=== PATIENT | male | born 1990 | race American Indian/Alaskan Native ===

== ENCOUNTER 2018-12-18 12:26 | Emergency (ER) | payer SELFPAY ==
[2018-12-18 13:58] VITALS: BP 142/98
--- NOTE | 2018-12-18 14:03 | Emergency Department Report ---
Blank Doc - Documentation Documentation: 28 yo male presents cc of non productive cough with chest pain x 1 week also cc of boil to lft groin area Plan meds, cxr reevaluate evaluate groin
--- NOTE | 2018-12-18 14:27 | XRay Report ---
ROUTINE CHEST, TWO VIEWS: HISTORY: Cough with chest pain. The trachea, heart, mediastinal contour, lung vasquez and bony thorax are unremarkable. IMPRESSION: Unremarkable chest x-ray.
--- NOTE | 2018-12-18 15:08 | Emergency Department Report ---
ED General Adult HPI - General Chief complaint: Upper Respiratory Infection Stated complaint: CHEST PAIN/BOIL GROIN AREA Time Seen by Provider: 12/18/18 13:57 Source: patient Mode of arrival: Ambulatory Limitations: No Limitations - History of Present Illness Initial comments: Patient is a 28-year-old [place] male who states for the past 3 days he's had some tenderness in the left lateral groin area. Patient states that this been no drainage but there is some tenderness on palpation and warmth. Patient denies any nausea vomiting fevers or chills. Patient also states she's had a nonproductive cough and states that his chest hurts after he coughs he says some mild shortness of breath. Patient denies any exposures to irritants in the air. Patient states he doesn't feel ill at this time. Severity scale (0 -10): 10 - Related Data Previous Rx's Medication Instructions Recorded Last Taken Type ALBUTEROL Inhaler (OR & NICU) 2 puff IH QID PRN #1 inhalation 12/18/18 Unknown Rx [ProAir HFA Inhaler] Clindamycin [Clindamycin CAP] 300 mg PO Q8H 7 Days cap 12/18/18 Unknown Rx HYDROcodone/APAP 5-325 [[place] 1 each PO Q6HR PRN #15 tablet 12/18/18 Unknown Rx 5/325] Ibuprofen [Motrin] 800 mg PO Q8HR PRN #20 tablet 12/18/18 Unknown Rx Allergies Allergy/AdvReac Type Severity Reaction Status Date / Time No Known Allergies Allergy Unverified 12/18/18 13:58 ED Review of Systems ROS: Stated complaint: CHEST PAIN/BOIL GROIN AREA Other details as noted in HPI Comment: All other systems reviewed and negative ED Past Medical Hx - Social History Smoking Status: Current Every Day Smoker Substance Use Type: None - Medications Home Medications: Home Medications Medication Instructions Recorded Confirmed Last Taken Type ALBUTEROL Inhaler (OR & NICU) 2 puff IH QID PRN #1 inhalation 12/18/18 Unknown Rx [ProAir HFA Inhaler] Clindamycin [Clindamycin CAP] 300 mg PO Q8H 7 Days cap 12/18/18 Unknown Rx HYDROcodone/APAP 5-325 [[place] 1 each PO Q6HR PRN #15 tablet 12/18/18 Unknown Rx 5/325] Ibuprofen [Motrin] 800 mg PO Q8HR PRN #20 tablet 12/18/18 Unknown Rx ED Physical Exam - General Limitations: No Limitations General appearance: alert, in no apparent distress - Head Head exam: Present: atraumatic, normocephalic - Eye Eye exam: Present: normal appearance - ENT ENT exam: Present: mucous membranes moist - Neck Neck exam: Present: normal inspection - Respiratory Respiratory exam: Present: normal lung sounds bilaterally. Absent: respiratory distress, wheezes, rales - Cardiovascular Cardiovascular Exam: Present: regular rate, normal rhythm. Absent: systolic murmur, diastolic murmur, rubs, gallop - GI/Abdominal GI/Abdominal exam: Present: soft, normal bowel sounds. Absent: distended, tenderness, guarding - Rectal Rectal exam: Present: deferred - Extremities Exam Extremities exam: Present: normal inspection - Back Exam Back exam: Present: normal inspection - Neurological Exam Neurological exam: Present: alert, oriented X3 - Psychiatric Psychiatric exam: Present: normal affect, normal mood - Skin Skin exam: Present: warm, dry, intact, normal color, other (patient has an area of induration erythema and warmth with no central fluctuance in the area of the left groin extending up into the inguinal area. This appears to have initiated from small grouping of folliculitis). Absent: rash ED Course Vital Signs 12/18/18 13:56 Temperature 98.5 F Pulse Rate 108 H Respiratory 16 Rate Blood Pressure 142/98 O2 Sat by Pulse 96 Oximetry ED Medical Decision Making - Radiology Data Radiology results: report reviewed (chest x-ray is within normal limits) - Medical Decision Making Patient's cellulitis/folliculitis does not appear to need I&D at this time there is no fluctuance. The patient is rolled to be thin and does not have a huge amount of soft tissue that an abscess could have extended down into. Patient's will be started on antibiotics. Regarding the patient's shortness of breath he may have a mild viral upper respiratory infection starting and the patient will be started on albuterol inhaler. Critical care attestation.: If time is entered above; I have spent that time in minutes in the direct care of this critically ill patient, excluding procedure time. ED Disposition Clinical Impression: Upper respiratory infection Cellulitis Qualifiers: Site of cellulitis: other site Qualified Code(s): L03.818 - Cellulitis of other sites Disposition: DC-01 TO HOME OR SELFCARE Is pt being admited?: No Does the pt Need Aspirin: No Condition: Stable Instructions: Cellulitis (ED), Upper Respiratory Infection (ED) Referrals: BRADLEY STANLEY MD [Primary Care Provider] - 3-5 Days Time of Disposition: 15:11
== END 2018-12-18 15:19 | disposition home or self-care (01) ==
LOC: ED 12:26
DX: J06.9 Acute upper respiratory infection, unspecified (principal); L03.314 Cellulitis of groin; F17.200 Nicotine dependence, unspecified, uncomplicated
CPT/HCPCS: 71046

== ENCOUNTER 2018-12-20 14:41 | Emergency (ER) | payer SELFPAY ==
[2018-12-20 15:31] VITALS: BP 138/96
--- NOTE | 2018-12-20 15:34 | Emergency Department Report ---
Blank Doc - Documentation Documentation: 28 y o returns to Ed cc of worsening swelling to groin left gotten bigger and draining he states Difficut to walk due to pain and swelling has been taking antibiotics states Penis is swollen as well PLAN: U/S testicular if needed after evaluation I&D
--- NOTE | 2018-12-20 15:50 | Emergency Department Report ---
Abscess Boil HPI - HPI Chief Complaint: Skin/Abscess/Foreign Body Stated Complaint: BOIL NEAR GROIN Time Seen by Provider: 12/20/18 15:28 Duration: 5 Days Location: Other (left groin) Severity: Severe (10/10) History: Yes Fever, Yes Pain (left groin abscess), Yes Purulent Drainage (small amount), No Numbness, No Foreign Body, No Previous History, No Insect Bite HPI: This is a 28-year-old male reported that he noticed abscesses getting bigger and this is been going on over 3 days. He said now it is very painful for him to walk. Tetanus vaccine is less than 5 years and he states that he has never had similar episode of this. Denies any testicular or penile pain. Denies any urinary burning frequency urgency. Denies any history of hernia. He says there is an opening into the center with scant amount of drainage and pain is 10/10 and throbbing. Forced the touch and walk and no alleviating factors. He said he is taking some antibiotic that he cannot remember and a notice on 12/18/2018 patient received clindamycin antibiotic which is probably what he states talking about taking an antibiotic. He was seen by Dr. Pawan Ureña and was given prescription for hydrocodone, Motrin, clindamycin and albuterol for upper respiratory infection. Patient said he has been taking an antibiotic since yesterday which is one day and was prescribed on the sixth. Denies any fever or chills. Home Medications: Previous Rx's Medication Instructions Recorded Last Taken Type HYDROcodone/APAP 5-325 [[place] 1 each PO Q6HR PRN #15 tablet 12/18/18 Unknown Rx 5/325] Ibuprofen [Motrin] 800 mg PO Q8HR PRN #20 tablet 12/18/18 Unknown Rx RX: ALBUTEROL Inhaler (OR & NICU) 2 puff IH QID PRN #1 inhalation 12/18/18 Unknown Rx [ProAir HFA Inhaler] RX: Clindamycin [Clindamycin CAP] 300 mg PO Q8H 7 Days cap 12/18/18 Unknown Rx Allergies/Adverse Reactions: Allergies Allergy/AdvReac Type Severity Reaction Status Date / Time No Known Allergies Allergy Verified 12/20/18 15:31 ED Review of Systems ROS: Stated complaint: BOIL NEAR GROIN Other details as noted in HPI Constitutional: denies: chills, fever ENT: denies: throat pain Respiratory: denies: cough, shortness of breath, wheezing Cardiovascular: denies: chest pain, palpitations, dyspnea on exertion, edema, syncope Gastrointestinal: denies: abdominal pain, nausea, vomiting, hematemesis, hematochezia Genitourinary: other (abscess to right groin). denies: urgency, dysuria, discharge, testicular pain, testicular mass Musculoskeletal: denies: back pain, joint swelling, arthralgia, myalgia Skin: other (abscess). denies: rash Neurological: denies: headache, abnormal gait, vertigo ED Past Medical Hx - Past Medical History Previous Medical History?: No - Surgical History Past Surgical History?: No - Family History Family history: hypertension - Social History Smoking Status: Current Every Day Smoker Substance Use Type: None - Medications Home Medications: Home Medications Medication Instructions Recorded Confirmed Last Taken Type HYDROcodone/APAP 5-325 [[place] 1 each PO Q6HR PRN #15 tablet 12/18/18 Unknown Rx 5/325] Ibuprofen [Motrin] 800 mg PO Q8HR PRN #20 tablet 12/18/18 Unknown Rx RX: ALBUTEROL Inhaler (OR & NICU) 2 puff IH QID PRN #1 inhalation 12/18/18 Unknown Rx [ProAir HFA Inhaler] RX: Clindamycin [Clindamycin CAP] 300 mg PO Q8H 7 Days cap 12/18/18 Unknown Rx ED Abscess Boil Physical Exam - Exam General: Vital signs noted. No distress. Alert and acting appropriately. This is a 28-year-old male well-nourished, well developed in no acute distress. Front/Back of Body, Lg (Color): 1 - Patient with 4 x 4 centimeter indurated and minimal fluctuance out of lateral abscess. Mild erythema. Small opening into area of fluctuance with minimal drainage noted. Tender to palpate. No involvement of penile or testicular area. Size: 4 cm Exam: Yes Tenderness, Yes Fluctuance (minimal with mostly induration), Yes Surrounding Cellulites/Erythema (2 x 2 area), Yes Lymphangitis (left inguinal area), Yes Normal Neurologic Exam, Yes Normal Circulation (No cce. + 2 pulses in all extremities, no neurovascular compromise), No Crepitation, No Heart Murmur (S1, S2, tachycardic) I & D Note - I & D Note I & D Note: Incision and drainage of abscess. 4 x 4 centimeter area to left groin area with mostly induration and minimal fluctuance. Area cleansed with iodine followed by normal saline. #15 mL of 0.5% Marcaine instilled an area of fluctuance. #11 blade used to make a small opening to area that severity of then approximately 0.25 cm. Express a moderate amount of thick pus from side. Patient tetanus vaccine is up-to-date less than 5 years. Area packed with iodoform and a dry sterile dressing placed inside. Patient informed that he needs to place warm compresses to site 3-4 times a day for at least 50 minutes at a time to facilitate softening and drainage and he needs to keep packing in until he returns in 4 days for evaluation. I also discussed with him that he does not need to place warm compresses the site directly but to place over washcloth or gauze dressing. ED Course Vital Signs 12/20/18 15:29 Temperature 97.4 F L Pulse Rate 115 H Respiratory 16 Rate Blood Pressure 138/96 O2 Sat by Pulse 97 Oximetry Vital Signs 12/20/18 12/20/18 12/20/18 15:29 15:58 17:19 Temperature 97.4 F L Pulse Rate 115 H 92 H Respiratory 16 18 Rate Blood Pressure 138/96 O2 Sat by Pulse 97 Oximetry - Reevaluation(s) Reevaluation #1: 12/20/18 17:20 Patient given Motrin 800 mg by mouth prior to procedure. Please see procedure note for details on incision and drainage. Critical care attestation.: If time is entered above; I have spent that time in minutes in the direct care of this critically ill patient, excluding procedure time. ED Medical Decision Making - Medical Decision Making This is a 28-year-old male that was here on 12/18/2018 and was treated for abscess and upper respiratory infection. He is back today after starting antibiotic yesterday and says that area is getting bigger. He was given Motrin 800 mg by mouth for pain and his tetanus vaccine is up-to-date. After assessing the area, found to 4 x 4 centimeter of mostly indurated with mild cellulitis and some fluctuance. Please see procedure note for details of incision and drainage. I discussed with patient that he needs to continue to take clindamycin which he said he started, hydrocodone for severe pain and Motrin for mild to moderate pain. I also discussed that he needs a place warm compresses to the site and to return in 4 days for evaluation and removal of packing and he voiced understanding. Vital signs stable he is afebrile and discharged home in stable condition. ED Disposition Clinical Impression: Abscess or cellulitis of groin, Encounter for incision and drainage procedure Disposition: - TO HOME OR SELFCARE Is pt being admited?: No Does the pt Need Aspirin: No Condition: Stable Instructions: Cellulitis (ED), Abscess Incision and Drainage (ED) Additional Instructions: Please return to emergency room in 4 days to have packing removed from groin area Please take sitz baths and apply warm compresses to right pubic area 3-4 times a day and sitz baths to affected area to help to soften abscess take Motrin and hydrocodone as previously prescribed on 12/18/2018. Please have her operate heavy machinery while taking hydrocodone as it causes drowsiness Continue to take clindamycin as previously prescribed If area of cellulitis worsens, increase in pain and increase in swelling please return to the emergency room [facility] Please keep pack in and place to area that was incision and drained until you are seen in 4 days. Referrals: [facility] [Outside] - 3-5 Days Please return to, Emergency room [Other] - 12/24/18 Forms: Work/School Release Form(ED)
[2018-12-20] MEDS ORDERED: CLEOCIN PO ONE (15:51)
[2018-12-20] MEDS ORDERED: IBUPROFEN PO ONE (15:51)
[2018-12-20] MEDS ORDERED: MARCAINE 0.25% INFILTRATI ONE ×3 (15:51→16:00)
== END 2018-12-20 17:47 | disposition home or self-care (01) ==
LOC: ED 14:41
DX: L02.214 Cutaneous abscess of groin (principal); F17.200 Nicotine dependence, unspecified, uncomplicated

== ENCOUNTER 2019-02-10 01:09 | Emergency (ER) | payer OTHER ==
[2019-02-10 01:59] LABS: Eosinophils # (Auto) 0.2 K/mm3 (0.0-0.4); Eosinophils % (Auto) 3.6 % (0.0-4.3); Hematocrit 45.4 % (35.5-45.6); Hemoglobin 15.9 gm/dl (11.8-15.2); Lymphocytes # (Auto) 1.5 K/mm3 (1.2-5.4); Lymphocytes % (Auto) 29.6 % (13.4-35.0); Mean Corpuscular HGB Conc 35 % (32-34); Mean Corpuscular Volume 93 fl (84-94); Monocytes # (Auto) 0.5 K/mm3 (0.0-0.8); Platelet Count 265 K/mm3 (140-440); Red Cell Distribution Width 13.3 % (13.2-15.2)
--- NOTE | 2019-02-10 02:11 | Emergency Department Report ---
ED Abdominal Pain HPI - General Chief Complaint: GI Bleed Stated Complaint: ABD PAiN Time Seen by Provider: 02/10/19 01:59 Source: patient Mode of arrival: Ambulatory Limitations: No Limitations - History of Present Illness Initial Comments: Mr. Rodriges is a healthy 28 yo male who presents with stomach cramping and dark diarrhea. At least 5 stools/day for the last 2 days. No fever. Mild cramping. No gross blood. MD Complaint: abdominal pain -: Gradual, days(s) (2) Location: epigastric Severity: severe Severity scale (0 -10): 10 Quality: cramping Consistency: intermittent Improves With: nothing Worsens With: nothing Context: possible food poisoning Associated Symptoms: diarrhea - Related Data Previous Rx's Medication Instructions Recorded Last Taken Type ALBUTEROL Inhaler (OR & NICU) 2 puff IH QID PRN #1 inhalation 12/18/18 Unknown Rx [ProAir HFA Inhaler] Clindamycin [Clindamycin CAP] 300 mg PO Q8H 7 Days cap 12/18/18 Unknown Rx HYDROcodone/APAP 5-325 [[place] 1 each PO Q6HR PRN #15 tablet 12/18/18 Unknown Rx 5/325] Ibuprofen [Motrin] 800 mg PO Q8HR PRN #20 tablet 12/18/18 Unknown Rx Doxycycline [Vibramycin CAP] 100 mg PO Q12HR 7 Days #14 capsule 12/24/18 Unknown Rx traMADol [Ultram 50 MG tab] 50 mg PO Q6HR PRN #12 tablet 12/24/18 Unknown Rx Loperamide [Imodium] 2 tab PO QID 2 Days #16 capsule 02/10/19 Unknown Rx Allergies Allergy/AdvReac Type Severity Reaction Status Date / Time No Known Allergies Allergy Verified 12/20/18 15:31 ED Review of Systems ROS: Stated complaint: ABD PAiN Other details as noted in HPI Comment: All other systems reviewed and negative Respiratory: denies: cough Cardiovascular: denies: chest pain ED Past Medical Hx - Past Medical History Previous Medical History?: No - Surgical History Past Surgical History?: Yes Additional Surgical History: left leg surgery - Social History Smoking Status: Never Smoker Substance Use Type: None - Medications Home Medications: Home Medications Medication Instructions Recorded Confirmed Last Taken Type ALBUTEROL Inhaler (OR & NICU) 2 puff IH QID PRN #1 inhalation 12/18/18 Unknown Rx [ProAir HFA Inhaler] Clindamycin [Clindamycin CAP] 300 mg PO Q8H 7 Days cap 12/18/18 Unknown Rx HYDROcodone/APAP 5-325 [[place] 1 each PO Q6HR PRN #15 tablet 12/18/18 Unknown Rx 5/325] Ibuprofen [Motrin] 800 mg PO Q8HR PRN #20 tablet 12/18/18 Unknown Rx Doxycycline [Vibramycin CAP] 100 mg PO Q12HR 7 Days #14 capsule 12/24/18 Unknown Rx traMADol [Ultram 50 MG tab] 50 mg PO Q6HR PRN #12 tablet 12/24/18 Unknown Rx Loperamide [Imodium] 2 tab PO QID 2 Days #16 capsule 02/10/19 Unknown Rx ED Physical Exam - General Limitations: No Limitations General appearance: alert, in no apparent distress - Head Head exam: Present: atraumatic, normocephalic - Eye Eye exam: Present: normal appearance - ENT ENT exam: Present: mucous membranes moist - Neck Neck exam: Present: normal inspection, full ROM - Respiratory Respiratory exam: Present: normal lung sounds bilaterally. Absent: respiratory distress, wheezes, rales, rhonchi - Cardiovascular Cardiovascular Exam: Present: regular rate, normal rhythm, normal heart sounds. Absent: systolic murmur, diastolic murmur, rubs, gallop - GI/Abdominal GI/Abdominal exam: Present: soft, normal bowel sounds. Absent: distended, tenderness, guarding, rebound - Rectal Rectal exam: Present: normal inspection, normal rectal tone, heme (-) stool, other (green watery stool) - Extremities Exam Extremities exam: Present: normal inspection - Back Exam Back exam: Present: normal inspection - Neurological Exam Neurological exam: Present: alert, oriented X3 - Psychiatric Psychiatric exam: Present: normal affect, normal mood - Skin Skin exam: Present: warm, dry, intact, normal color. Absent: rash ED Course Vital Signs 02/10/19 02/10/19 01:12 02:07 Temperature 98.5 F 97.9 F Pulse Rate 106 H 100 H Respiratory 18 15 Rate Blood Pressure 156/88 Blood Pressure 130/91 [Left] O2 Sat by Pulse 99 98 Oximetry ED Medical Decision Making - Lab Data Result diagrams: 02/10/19 01:37 02/10/19 01:37 - Medical Decision Making Mr. Rodriges presents with diarrhea and stomach cramping, suspect food poisoning vs viral infection. Symptomatic treatment with loperamide and tylenol. Oral hydration recommended. CBC BMP within normal limits. Differential diagnosis considered: Appendicitis, irritable bowel syndrome, peptic ulcer disease, inflammatory bowel disease, bacterial infectious colitis Critical care attestation.: If time is entered above; I have spent that time in minutes in the direct care of this critically ill patient, excluding procedure time. ED Disposition Clinical Impression: Viral infection of digestive tract, Diarrhea, Abdominal pain Disposition: TO HOME OR SELFCARE Is pt being admited?: No Does the pt Need Aspirin: No Condition: Stable Instructions: Acute Diarrhea (ED), Acute Abdominal Pain (ED) Prescriptions: Loperamide [Imodium] 2 tab PO QID 2 Days #16 capsule Referrals: MAREK SOLORZANO MD [Primary Care Provider] - 3-5 Days Forms: Accompanied Note, Work/School Release Form(ED)
[2019-02-10] MEDS ORDERED: TYLENOL PO ONE (02:12)
[2019-02-10] MEDS ORDERED: PEPCID PO ONE (02:12)
[2019-02-10] MEDS ORDERED: IMODIUM PO ONE (02:12)
[2019-02-10 03:06] LABS: BUN/Creatinine Ratio 10; Blood Urea Nitrogen 11 mg/dL (9-20); Calcium 9.2 mg/dL (8.4-10.2); Hemolysis Index 14
[2019-02-10 04:14] VITALS: BP 120/80
== END 2019-02-10 04:16 | disposition home or self-care (01) ==
LOC: ED 01:09
DX: B34.9 Viral infection, unspecified (principal)
CPT/HCPCS: 36415; 80048; 85025

== ENCOUNTER 2020-01-22 19:14 | Emergency (ER) | payer SELFPAY ==
--- NOTE | 2020-01-23 02:07 | XRay Report ---
CHEST 2 VIEWS INDICATION / CLINICAL INFORMATION: productive cough. COMPARISON: 12/18/2018 FINDINGS: SUPPORT DEVICES: None. HEART / MEDIASTINUM: No significant abnormality. LUNGS / PLEURA: No significant pulmonary or pleural abnormality. No pneumothorax. No evidence of pneu monia or pleural effusion. ADDITIONAL FINDINGS: No significant additional findings. IMPRESSION: 1. No significant abnormality. No interval change. Signer Name: Cathy Cortes MD Signed: 01/23/2020 2:02 AM Workstation Name: [id number]
[2020-01-23] MEDS ORDERED: dexAMETHasone 20 MG/5 ML VIAL IM ONE (02:38)
[2020-01-23] MEDS ORDERED: AMOXICILLIN/K CLAV 875/125MG TAB PO ONE (02:38)
[2020-01-23] MEDS ORDERED: IPRATROPIUM/ALBUTEROL SULFATE 3 ML AMPUL.NEB IH ONE (02:38)
[2020-01-23] MEDS ORDERED: IBUPROFEN 600 MG TAB PO ONE (02:38)
--- NOTE | 2020-01-23 03:29 | Emergency Department Report ---
- General Chief Complaint: Dyspnea/Respdistress Stated Complaint: SOB/CHEST PAIN/SWEATS Source: patient Mode of arrival: Ambulatory Limitations: No Limitations - History of Present Illness Initial Comments: Patient is a 29-year-old -[place] male with no past medical history who presents to the ED with complaint of acute onset persistent nasal and sinus congestion, frontal sinus pressure and headache, diffuse body aches and pains, subjective fever and chills, persistent dry cough with lack of appetite for the last 1 week, worse in the last 2 days. Patient admits to heavy tobacco smoking habit. Patient denies any travel to any foreign country or being in contact with anyone with similar symptoms or anyone who has traveled abroad. Patient denies dizziness, chest pain, shortness of breath, abdominal pain, nausea, vomiting, diarrhea, dysuria, urinary frequency and urgency, change in vision or syncope. MD Complaint: fever, cough, sore throat, rhinorrhea, nasal congestion, sinus pain -: Sudden, week(s) (1) Severity: severe Severity scale (0 -10): 7 Quality: sharp, aching Consistency: constant Improves With: nothing Worsens With: nothing Associated Symptoms: denies other symptoms, fever, chills, myalgias, headache, rhinorrhea, nasal congestion, sore throat, cough. denies: stiff neck, chest pain, shortness of breath, abdominal pain, nausea, vomiting, diarrhea, dysuria, rash, right sweats, weight loss Treatments Prior to Arrival: none - Related Data Previous Rx's Medication Instructions Recorded Last Taken Type Albuterol INH(or & Nicu Only) 2 puff IH QID PRN #1 inhalation 12/18/18 Unknown Rx [ProAir HFA Inhaler] Clindamycin [Clindamycin CAP] 300 mg PO Q8H 7 Days cap 12/18/18 Unknown Rx HYDROcodone/APAP 5-325 [[place] 1 each PO Q6HR PRN #15 tablet 12/18/18 Unknown Rx 5/325] DOXYCYCLINE Hyclate [Vibramycin 100 mg PO Q12HR 7 Days #14 capsule 12/24/18 Unknown Rx CAP] traMADoL [Ultram 50 MG tab] 50 mg PO Q6HR PRN #12 tablet 12/24/18 Unknown Rx Loperamide [Imodium] 2 tab PO QID 2 Days #16 capsule 02/10/19 Unknown Rx Amoxicillin/Potassium Clav 1 each PO Q12H #20 tablet 01/23/20 Unknown Rx [Augmentin 875-125 Tablet] Benzonatate [Tessalon Perles] 100 mg PO Q8HR #30 capsule 01/23/20 Unknown Rx Cetirizine HCl [Zyrtec 10mg tab] 10 mg PO DAILY #30 tablet 01/23/20 Unknown Rx Ibuprofen [Motrin 800 MG tab] 800 mg PO Q8HR PRN #20 tablet 01/23/20 Unknown Rx methylPREDNISolone [Medrol 4MG 4 mg PO DAILY #21 tab.ds.pk 01/23/20 Unknown Rx DOSEPAK (21 tabs)] Allergies Allergy/AdvReac Type Severity Reaction Status Date / Time No Known Allergies Allergy Verified 12/20/18 15:31 ED Review of Systems ROS: Stated complaint: SOB/CHEST PAIN/SWEATS Other details as noted in HPI Constitutional: chills, fever, malaise Eyes: denies: eye pain, eye discharge, vision change ENT: throat pain, congestion. denies: ear pain Respiratory: cough, shortness of breath, wheezing Cardiovascular: denies: chest pain, palpitations Endocrine: no symptoms reported Gastrointestinal: denies: abdominal pain, nausea, diarrhea Genitourinary: denies: urgency, dysuria Musculoskeletal: arthralgia, myalgia. denies: back pain, joint swelling Skin: denies: rash, lesions Neurological: headache. denies: weakness, paresthesias Psychiatric: denies: anxiety, depression Hematological/Lymphatic: denies: easy bleeding, easy bruising ED Past Medical Hx - Past Medical History Previous Medical History?: No - Surgical History Past Surgical History?: Yes Additional Surgical History: left leg surgery - Social History Smoking Status: Current Every Day Smoker Substance Use Type: Marijuana - Medications Home Medications: Home Medications Medication Instructions Recorded Confirmed Last Taken Type Albuterol INH(or & Nicu Only) 2 puff IH QID PRN #1 inhalation 12/18/18 Unknown Rx [ProAir HFA Inhaler] Clindamycin [Clindamycin CAP] 300 mg PO Q8H 7 Days cap 12/18/18 Unknown Rx HYDROcodone/APAP 5-325 [[place] 1 each PO Q6HR PRN #15 tablet 12/18/18 Unknown Rx 5/325] DOXYCYCLINE Hyclate [Vibramycin 100 mg PO Q12HR 7 Days #14 capsule 12/24/18 Unknown Rx CAP] traMADoL [Ultram 50 MG tab] 50 mg PO Q6HR PRN #12 tablet 12/24/18 Unknown Rx Loperamide [Imodium] 2 tab PO QID 2 Days #16 capsule 02/10/19 Unknown Rx Amoxicillin/Potassium Clav 1 each PO Q12H #20 tablet 01/23/20 Unknown Rx [Augmentin 875-125 Tablet] Benzonatate [Tessalon Perles] 100 mg PO Q8HR #30 capsule 01/23/20 Unknown Rx Cetirizine HCl [Zyrtec 10mg tab] 10 mg PO DAILY #30 tablet 01/23/20 Unknown Rx Ibuprofen [Motrin 800 MG tab] 800 mg PO Q8HR PRN #20 tablet 01/23/20 Unknown Rx methylPREDNISolone [Medrol 4MG 4 mg PO DAILY #21 tab.ds.pk 01/23/20 Unknown Rx DOSEPAK (21 tabs)] ED Physical Exam - General Limitations: No Limitations General appearance: alert, in no apparent distress - Head Head exam: Present: atraumatic, normocephalic, normal inspection - Eye Eye exam: Present: normal appearance, PERRL, EOMI Pupils: Present: normal accommodation - ENT ENT exam: Present: mucous membranes moist, TM's normal bilaterally, normal external ear exam, other (Grossly congested nasal passages; palpable frontal sinus tenderness and erythematous oropharynx and tonsils) - Neck Neck exam: Present: normal inspection, full ROM, lymphadenopathy - Respiratory Respiratory exam: Present: wheezes (Mildly diffuse coarse wheezes throughout). Absent: respiratory distress, chest wall tenderness, accessory muscle use, decreased breath sounds, prolonged expiratory - Cardiovascular Cardiovascular Exam: Present: normal rhythm, tachycardia, normal heart sounds. Absent: systolic murmur, diastolic murmur, rubs, gallop - GI/Abdominal GI/Abdominal exam: Present: soft, normal bowel sounds. Absent: tenderness, hyperactive bowel sounds, organomegaly - Extremities Exam Extremities exam: Present: normal inspection, full ROM, normal capillary refill - Back Exam Back exam: Present: normal inspection, full ROM. Absent: tenderness, CVA tenderness (R), muscle spasm, paraspinal tenderness - Neurological Exam Neurological exam: Present: alert, oriented X3, CN II-XII intact, normal gait, reflexes normal - Psychiatric Psychiatric exam: Present: normal affect, normal mood - Skin Skin exam: Present: warm, dry, intact, normal color. Absent: rash ED Course Vital Signs 01/22/20 20:19 Temperature 99.3 F Pulse Rate 105 H Respiratory 20 Rate Blood Pressure 144/101 O2 Sat by Pulse 99 Oximetry ED Medical Decision Making - Radiology Data Radiology results: report reviewed, image reviewed Chest x-ray shows no acute cardiopulmonary abnormalities or pneumonitis, pleural effusion or pneumothorax. - Medical Decision Making This is a 29-year-old male who presented to the ED with persistent nasal and sinus congestion, persistent dry cough with wheezing and shortness of breath for 1 week worse in the last 2 days. In the ED, patient is alert and oriented x3 an d is not in any distress and is slightly tachycardic and afebrile. Patient received DuoNeb treatment in the ED as well as steroid and pain medications. Chest x-ray shows no acute cardiopulmonary abnormalities or pneumonitis, pneumothorax or pleural effusion. Patient symptoms are likely due to acute upper respiratory infection, frontal sinusitis, bronchitis complicated by heavy tobacco abuse. Patient was discharged home on medications and advised to follow-up with his primary care physician in 7 to 10 days for reevaluation. Patient was advised return to the ED immediately if symptoms get worse. - Differential Diagnosis Sinusitis; bronchitis; URI; strep pharyngitis; flu Critical care attestation.: If time is entered above; I have spent that time in minutes in the direct care of this critically ill patient, excluding procedure time. ED Disposition Clinical Impression: Acute upper respiratory infection Acute frontal sinusitis Qualifiers: Recurrence: non-recurrent Qualified Code(s): J01.10 - Acute frontal sinusitis, unspecified Acute bronchitis Qualifiers: Bronchitis organism: RSV Qualified Code(s): J20.5 - Acute bronchitis due to re spiratory syncytial virus Disposition: DC-01 TO HOME OR SELFCARE Is pt being admited?: No Does the pt Need Aspirin: No Condition: Stable Instructions: Acute Bronchitis (ED), Upper Respiratory Infection (ED), Acute Bacterial Rhinosinusitis (ED) Additional Instructions: Take medication with food, drink plenty fluids and follow-up with your primary care physician in 7 to 10 days for reevaluation. Return to the ED immediately if symptoms get worse. Consider quitting tobacco abuse. Prescriptions: Amoxicillin/Potassium Clav [Augmentin 875-125 Tablet] 1 each PO Q12H #20 tablet methylPREDNISolone [Medrol 4MG DOSEPAK (21 tabs)] 4 mg PO DAILY #21 tab.ds.pk Ibuprofen [Motrin 800 MG tab] 800 mg PO Q8HR PRN #20 tablet PRN Reason: Pain Benzonatate [Tessalon Perles] 100 mg PO Q8HR #30 capsule Cetirizine HCl [Zyrtec 10mg tab] 10 mg PO DAILY #30 tablet Referrals: [facility] [Outside] - 3-5 Days Forms: Work/School Release Form(ED) Time of Disposition: 03:30 Print Language: MOZAMBICAN
[2020-01-23 07:27] VITALS: BP 120/87
== END 2020-01-23 04:05 | disposition home or self-care (01) ==
LOC: ED 19:14
DX: J01.10 Acute frontal sinusitis, unspecified (principal); J20.9 Acute bronchitis, unspecified
CPT/HCPCS: 71046; 96372; 99283

== ENCOUNTER 2021-05-03 16:32 | Emergency (ER) | payer SELFPAY ==
[2021-05-04] MEDS ORDERED: ACETAMINOPHEN 500 MG TAB PO ONE (03:52)
[2021-05-04 05:06] LABS: Hematocrit 40.6 % (35.5-45.6); Hemoglobin 13.9 gm/dl (11.8-15.2); Mean Corpuscular HGB Conc 34 % (32-34); Mean Corpuscular Volume 92 fl (84-94); Platelet Count 235 K/mm3 (140-440); Red Blood Count 4.41 M/mm3 (3.65-5.03); Red Cell Distribution Width 13.8 % (13.2-15.2)
[2021-05-04 05:20] LABS: Alanine Aminotransferase 26 units/L (7-56); Albumin 4.6 g/dL (3.9-5); BUN/Creatinine Ratio 6; Blood Urea Nitrogen 5 mg/dL (9-20); Hemolysis Index 36
--- NOTE | 2021-05-04 05:44 | Emergency Department Report ---
<OZIEL ONEILL - Last Filed: 05/04/21 07:13> ED Abdominal Pain HPI - General Chief Complaint: Abdominal Pain Stated Complaint: LOWER ABD PAIN Source: patient Mode of arrival: Ambulatory Limitations: No Limitations - History of Present Illness Initial Comments: Patient is a 31-year-old -[place] male with no past medical history presents to the ED with complaint of acute onset persistent suprapubic pain for the last 1 week. Patient states that he has been taking [id number] antiemetics with no relief. Patient denies fall, traumatic injury, hematuria, testicular pain, dysuria, penile discharge, nausea, vomiting, dizziness, diarrhea, or heavy lifting at work MD Complaint: abdominal pain (Suprapubic pain radiating to the pelvic area), other (Nausea) -: Sudden, week(s) (4) Location: suprapubic Radiation: suprapubic Migration to: no migration Severity scale (0 -10): 7 Quality: aching, sharp Consistency: constant Improves With: nothing Worsens With: nothing Associated Symptoms: denies other symptoms. denies: nausea, vomiting, diarrhea, constipation, dysuria, hematochezia, melena, hematuria, anorexia, syncope, other - Related Data Previous Rx's Medication Instructions Recorded Last Taken Type Albuterol Mdi (or & Nicu Only) 2 puff IH QID PRN #1 inhalation 12/18/18 Unknown Rx [ProAir HFA Inhaler] Clindamycin [Clindamycin CAP] 300 mg PO Q8H 7 Days cap 12/18/18 Unknown Rx HYDROcodone/APAP 5-325 [[place] 1 each PO Q6HR PRN #15 tablet 12/18/18 Unknown Rx 5/325] DOXYCYCLINE Hyclate [Vibramycin 100 mg PO Q12HR 7 Days #14 capsule 12/24/18 Unknown Rx CAP] traMADoL [Ultram 50 MG tab] 50 mg PO Q6HR PRN #12 tablet 12/24/18 Unknown Rx Loperamide [Imodium] 2 tab PO QID 2 Days #16 capsule 02/10/19 Unknown Rx Amoxicillin/Potassium Clav 1 each PO Q12H #20 tablet 01/23/20 Unknown Rx [Augmentin 875-125 Tablet] Benzonatate [Tessalon Perles] 100 mg PO Q8HR #30 capsule 01/23/20 Unknown Rx Cetirizine HCl [Zyrtec 10mg tab] 10 mg PO DAILY #30 tablet 01/23/20 Unknown Rx methylPREDNISolone [Medrol 4MG 4 mg PO DAILY #21 tab.ds.pk 01/23/20 Unknown Rx DOSEPAK (21 tabs)] Ibuprofen [Motrin 800 MG tab] 800 mg PO Q8HR PRN #30 tablet 05/04/21 Unknown Rx Allergies Allergy/AdvReac Type Severity Reaction Status Date / Time No Known Allergies Allergy Verified 12/20/18 15:31 ED Review of Systems Constitutional: denies: chills, fever Eyes: denies: eye pain, eye discharge, vision change ENT: denies: ear pain, throat pain Respiratory: denies: cough, shortness of breath, wheezing Cardiovascular: denies: chest pain, palpitations Endocrine: no symptoms reported Gastrointestinal: abdominal pain (Suprapubic pain). denies: nausea, vomiting, diarrhea Genitourinary: denies: urgency, dysuria Musculoskeletal: denies: back pain, joint swelling, arthralgia Skin: denies: rash, lesions Neurological: denies: headache, weakness, paresthesias Psychiatric: denies: anxiety, depression Hematological/Lymphatic: denies: easy bleeding, easy bruising ED Past Medical Hx - Past Medical History Previous Medical History?: No - Surgical History Past Surgical History?: Yes Additional Surgical History: left leg surgery - Social History Smoking Status: Current Every Day Smoker Substance Use Type: Marijuana - Medications Home Medications: Home Medications Medication Instructions Recorded Confirmed Last Taken Type Albuterol Mdi (or & Nicu Only) 2 puff IH QID PRN #1 inhalation 12/18/18 Unknown Rx [ProAir HFA Inhaler] Clindamycin [Clindamycin CAP] 300 mg PO Q8H 7 Days cap 12/18/18 Unknown Rx HYDROcodone/APAP 5-325 [[place] 1 each PO Q6HR PRN #15 tablet 12/18/18 Unknown Rx 5/325] DOXYCYCLINE Hyclate [Vibramycin 100 mg PO Q12HR 7 Days #14 capsule 12/24/18 Unknown Rx CAP] traMADoL [Ultram 50 MG tab] 50 mg PO Q6HR PRN #12 tablet 12/24/18 Unknown Rx Loperamide [Imodium] 2 tab PO QID 2 Days #16 capsule 02/10/19 Unknown Rx Amoxicillin/Potassium Clav 1 each PO Q12H #20 tablet 01/23/20 Unknown Rx [Augmentin 875-125 Tablet] Benzonatate [Tessalon Perles] 100 mg PO Q8HR #30 capsule 01/23/20 Unknown Rx Cetirizine HCl [Zyrtec 10mg tab] 10 mg PO DAILY #30 tablet 01/23/20 Unknown Rx methylPREDNISolone [Medrol 4MG 4 mg PO DAILY #21 tab.ds.pk 01/23/20 Unknown Rx DOSEPAK (21 tabs)] Ibuprofen [Motrin 800 MG tab] 800 mg PO Q8HR PRN #30 tablet 05/04/21 Unknown Rx ED Physical Exam - General Limitations: No Limitations General appearance: alert, in no apparent distress, anxious - Head Head exam: Present: atraumatic, normocephalic, normal inspection - Eye Eye exam: Present: normal appearance, PERRL, EOMI Pupils: Present: normal accommodation - ENT ENT exam: Present: normal exam, normal orophraynx, mucous membranes moist, TM's normal bilaterally, normal external ear exam - Neck Neck exam: Present: normal inspection, full ROM - Respiratory Respiratory exam: Present: normal lung sounds bilaterally. Absent: respiratory distress, wheezes, rales, rhonchi, chest wall tenderness, accessory muscle use, decreased breath sounds, prolonged expiratory - Cardiovascular Cardiovascular Exam: Present: regular rate, normal rhythm, normal heart sounds. Absent: systolic murmur, diastolic murmur, rubs, gallop - GI/Abdominal GI/Abdominal exam: Present: soft, normal bowel sounds. Absent: tenderness, guarding, rebound, hyperactive bowel sounds, hypoactive bowel sounds, organomegaly, mass - Extremities Exam Extremities exam: Present: normal inspection - Back Exam Back exam: Present: normal inspection, full ROM. Absent: tenderness, CVA tenderness (R), muscle spasm, vertebral tenderness - Neurological Exam Neurological exam: Present: alert, oriented X3, CN II-XII intact, normal gait, reflexes normal - Psychiatric Psychiatric exam: Present: normal affect, normal mood, anxious - Skin Skin exam: Present: warm, dry, intact, normal color. Absent: rash, cyanosis, diaphoretic ED Medical Decision Making - Lab Data Result diagrams: 05/04/21 04:15 05/04/21 04:15 - Medical Decision Making This is a 31-year-old -[place] male with no past medical history presents to the ED with complaint of acute onset persistent suprapubic pain for the last 1 week. Patient states that he has been taking [id number] antiemetics with no relief. In the ED, patient is alert and oriented x3 and is not in any distress. Labs were drawn and patient was treated for pain. Abdomen pelvis CT scan without contrast is pending. Patient care was transferred to Ms. Mahnaz Purcell PA-C at shift change we shall review all lab test results and imaging report and disposition the patient accordingly. - Differential Diagnosis Constipation;. UTI; colitis; STD; appendicitis; kidney stones ED Disposition Clinical Impression: Acute pelvic pain Disposition: DC-01 TO HOME OR SELFCARE Is pt being admited?: No Does the pt Need Aspirin: No Condition: Stable Instructions: Pelvic Pain, Male Additional Instructions: All lab test results are reviewed and are all nonactionable. Therefore take medication with food, drink plenty of fluids and follow-up with your primary care physician in 7 to 10 days for reevaluation and regarding your CT results. Return to the ED immediately if symptoms get worse. Prescriptions: Ibuprofen [Motrin 800 MG tab] 800 mg PO Q8HR PRN #30 tablet PRN Reason: Pain Referrals: [facility] [Provider Group] - 3-5 Days Time of Disposition: 05:50 Print Language: THAI <MAHNAZ PURCELL - Last Filed: 05/04/21 08:37> ED Review of Systems ROS: Stated complaint: LOWER ABD PAIN Other details as noted in HPI ED Course Vital Signs 05/03/21 17:40 Temperature 98.0 F Pulse Rate 76 Respiratory 18 Rate Blood Pressure 133/82 [Right] O2 Sat by Pulse 98 Oximetry ED Medical Decision Making - Lab Data Result diagrams: 05/04/21 04:15 05/04/21 04:15 - Radiology Data [facility] [address] [place] [address] Cat Scan Report Signed Patient: NEFTALY TATE JR MR#: [id number] : 1990 Acct:[id number] Age/Sex: 31 / M ADM Date: 05/03/21 Loc: ED Attending Dr: Ordering Physician: NAZARIO MEI Date of Service: 05/04/21 Procedure(s): CT abdomen pelvis wo con Accession Number(s): [id number] cc: NAZARIO MEI CT ABDOMEN AND PELVIS WITHOUT CONTRAST INDICATION / CLINICAL INFORMATION: INGUINAL PAIN AND PAIN DURING URINATION. TECHNIQUE: Axial CT images were obtained through the abdomen and pelvis without IV contrast. All CT scans at this location are performed using CT dose reduction for ALARA by means of automated exposure control. COMPARISON: None available. FINDINGS: LOWER CHEST: There are few small nodules in the lung bases. There is a 4 mm nodule in the left lower lobe, series 2 image 8. There is a 4 mm pleural-based nodule in the right lower lobe, series 2 9 LIVER: No significant abnormality. GALLBLADDER: No significant abnormality. BILE DUCTS: No significant abnormality. PANCREAS: No significant abnormality. SPLEEN: No significant abnormality. ADRENALS: No significant abnormality. RIGHT KIDNEY / URETER: No significant abnormality. LEFT KIDNEY / URETER: No significant abnormality. STOMACH / SMALL BOWEL: No significant abnormality. COLON: No significant abnormality. APPENDIX: No significant abnormality. PERITONEUM: No free fluid. No free air. No fluid collection. LYMPH NODES: No significant adenopathy. AORTA / ARTERIES: No significant abnormality. IVC / VEINS: No significant abnormality. URINARY BLADDER: No significant abnormality. REPRODUCTIVE ORGANS: No significant abnormality. ADDITIONAL FINDINGS: None. SKELETAL SYSTEM: No significant abnormality. IMPRESSION: 1. There is no obstruction, inflammation, or free air. There are no abnormal collections. There are no renal calculi. There is no hydronephrosis. 2. There are a few tiny nodules in the lung bases measuring up to 4 mm. Multiple incidental pulmonary nodule(s) in the lower lobes measuring 4 mm with solid characteristics. Recommendation according to Fleischner Society 2017 Guidelines: Low Risk Patient: No routine follow-up; High Risk Patient: Optional CT at 12 months. Signer Name: Darian Baldwin MD Signed: 05/04/2021 8:17 AM Workstation Name: [id number] Transcribed By: Dictated By: Darian Baldwin MD Electronically Authenticated By: Darian Baldwin MD Signed Date/Time: 05/04/21816 DD/ 7 TD/TT: - Medical Decision Making Care of patient transferred by Oziel Oneill PA-C at shift change pending CT results. On reevaluation, patient is stable. He is resting comfortably, no acute distress. CT of the abdomen/pelvis without acute process; incidental pulmonary nodules noted. Patient has been provided with a copy of his imaging results and referred to local primary care provider for close outpatient follow-up. Patient expressed understanding and is agreeable to plan of care. Strict return precautions provided. Repeat exam is unremarkable and benign. History, exam, diagnostic testing, and current condition do not suggest worrisome pathology to warrant further testing, continued ED treatment, admission, or surgical evaluation at this point. Given the low probability of a significant medical illness, it would be more likely to result in harm than benefit to perform further testing at this stage. Discussed findings, presumptive diagnosis, need for follow-up and specific signs/symptoms that should prompt immediate return to the emergency department. Instructions were explained in detail to the patient in addition to giving written discharge information. Patient expressed understanding and was given the opportunity to ask questions, all of which were satisfactorily answered prior to discharge home. Critical care attestation.: If time is entered above; I have spent that time in minutes in the direct care of this critically ill patient, excluding procedure time. ED Disposition Is pt being admited?: No Does the pt Need Aspirin: No Time of Disposition: 08:34
[2021-05-04 06:05] LABS: Bilirubin,Urine NEG (Negative); Blood,Urine SM (Negative); Color,Urine Yellow (Yellow); Mucus,Urine FEW /HPF; Protein,Urine <15 mg/dL mg/dL (Negative)
[2021-05-04] MEDS ORDERED: ACETAMINOPHEN 500 MG TAB ONE (06:35)
--- NOTE | 2021-05-04 08:22 | Cat Scan Report ---
CT ABDOMEN AND PELVIS WITHOUT CONTRAST INDICATION / CLINICAL INFORMATION: INGUINAL PAIN AND PAIN DURING URINATION. TECHNIQUE: Axial CT images were obtained through the abdomen and pelvis without IV contrast. All CT scans at this location are performed using CT dose reduction for ALARA by means of automated exposure control. COMPARISON: None available. FINDINGS: LOWER CHEST: There are few small nodules in the lung bases. There is a 4 mm nodule in the left lower lobe, series 2 image 8. There is a 4 mm pleural-based nodule in the right lower lobe, series 2 9 LIVER: No significant abnormality. GALLBLADDER: No significant abnormality. BILE DUCTS: No significant abnormality. PANCREAS: No significant abnormality. SPLEEN: No significant abnormality. ADRENALS: No significant abnormality. RIGHT KIDNEY / URETER: No significant abnormality. LEFT KIDNEY / URETER: No significant abnormality. STOMACH / SMALL BOWEL: No significant abnormality. COLON: No significant abnormality. APPENDIX: No significant abnormality. PERITONEUM: No free fluid. No free air. No fluid collection. LYMPH NODES: No significant adenopathy. AORTA / ARTERIES: No significant abnormality. IVC / VEINS: No significant abnormality. URINARY BLADDER: No significant abnormality. REPRODUCTIVE ORGANS: No significant abnormality. ADDITIONAL FINDINGS: None. SKELETAL SYSTEM: No significant abnormality. IMPRESSION: 1. There is no obstruction, inflammation, or free air. There are no abnormal collections. There are n o renal calculi. There is no hydronephrosis. 2. There are a few tiny nodules in the lung bases measuring up to 4 mm. Multiple incidental pulmonary nodule(s) in the lower lobes measuring 4 mm with solid characteristics. Recommendation according to Fleischner Society 2017 Guidelines: Low Risk Patient: No routine follow-up; High Risk Patient: Option al CT at 12 months. Signer Name: Darian Baldwin MD Signed: 05/04/2021 8:17 AM Workstation Name: [id number]
[2021-05-04 08:53] VITALS: BP 135/84
== END 2021-05-04 08:55 | disposition home or self-care (01) ==
LOC: ED 16:32
DX: R10.2 Pelvic and perineal pain (principal); R10.30 Lower abdominal pain, unspecified; F17.200 Nicotine dependence, unspecified, uncomplicated; F12.90 Cannabis use, unspecified, uncomplicated; Z79.899 Other long term (current) drug therapy
CPT/HCPCS: 36415; 74176; 80053; 81001; 85027; 99284